=== PATIENT | male | born 1985 | race African-American/Black ===

== ENCOUNTER 2018-08-16 20:13 | Emergency (ER) | payer OTHER | END 2018-08-16 22:08 | disposition home or self-care (01) | LOC: FTE 20:13 | DX: J03.90 Acute tonsillitis, unspecified (principal); J32.9 Chronic sinusitis, unspecified; H61.23 Impacted cerumen, bilateral | CPT/HCPCS: 99283; Z7502 ==

== ENCOUNTER 2019-02-03 18:45 | Emergency (ER) | payer OTHER ==
[2019-02-03] MEDS: CEFTRIAXONE 1 GM INJ IM (20:52)
[2019-02-03] MEDS: ACETAMINOPHEN 325 MG TAB PO (20:52)
[2019-02-03] MEDS: IBUPROFEN 200 MG TAB PO (20:52)
[2019-02-03] MEDS: LIDOCAINE 1% (MPF) 5 ML VIAL INFIL (20:52)
== END 2019-02-03 21:49 | disposition home or self-care (01) ==
LOC: FTE 18:45
DX: J03.90 Acute tonsillitis, unspecified (principal)
CPT/HCPCS: 96372; 99284-25